=== PATIENT | male | born 1985 | race Caucasian/White ===

== ENCOUNTER 2017-04-09 14:45 | Emergency (ER) | payer OTHER | END 2017-04-09 16:50 | disposition other institution (70) | LOC: ED 14:45 | DX: Z02.89 Encounter for other administrative examinations (principal) ==

== ENCOUNTER 2017-04-09 14:45 | Emergency (ER) | payer SELFPAY ==
[~2017-04-09] VITALS: Ht 170.2 cm; Wt 73.5 kg
[2017-04-09 16:50] VITALS: BP 136/96
== END 2017-04-09 16:50 | disposition other institution (70) ==
LOC: ED 14:45
DX: F15.90 Other stimulant use, unspecified, uncomplicated (principal); Z72.89 Other problems related to lifestyle